=== PATIENT | female | born 1955 | race Caucasian/White ===

== ENCOUNTER 2017-03-05 06:00 | Day surgery (SDC) | payer OTHER ==
[~2017-03-05] VITALS: Ht 180.3 cm; Wt 104.5 kg
[~2017-03-05 06:00] MED LIST: ACETAMINOPHEN325 M1 PO; ATENOLOL25 MG PO; CHLORHEXIDINE473 ML MM; CLONAZEPAM0.5 MG PO; ESCITALOPRAM OX20 MG PO; ESTRADIOL0.5 MG PO; EXCEDRIN MIGRA1 EAC2 PO; FLUTICASONE PRO16 GM NAS; LEVOTHYROXINE25 MCG PO; LORAZEPAM0.5 MG PO; NITROFURANTOIN50 MG PO; OMEPRAZOLE20 MG PO; PROMETHAZINE HC25 M1 PO; SUCRALFATE1 GM PO; TRIAMCINOLONE A15 G1 TOP; VITAMIN C500 M1 PO; ZINC50 MG PO
--- NOTE | 2017-03-05 08:13 | NUR ---
03/05/17 0813 Edwin Middleton CBG = 112 ON ARRIVAL TO PACU
--- NOTE | 2017-03-05 13:57 | NUR ---
PT SAID SHE HAS HAD STOMACH DISCOMFORT FOR 7 YRS, HOPES AND PRAYS THAT TODAY SOME ANSWERS CAN BE DISCOVERED. FRIENDLY, REQUESTED PRAYER. WILL FOLLOW NEEDED
--- NOTE | 2017-03-05 14:24 | OR ---
[facility] [address], [place] [address] Signed DATE OF PROCEDURE: 03/05/17 PREOPERATIVE DIAGNOSES Epigastric abdominal pain. History of peptic ulcer disease. History of gastritis. Personal history of hyperplastic colonic polyps in 2009. POSTOPERATIVE DIAGNOSES Antral gastric ulcers x2. Moderate gastritis. Unremarkable colonoscopy. PROCEDURE EGD with CLOtest and biopsies of the antrum. Colonoscopy without biopsy. ESTIMATED BLOOD LOSS: None. INDICATIONS Anayeli is a 61-year-old female, who I know previously. She underwent upper and lower endoscopy back in May 2010. She is known to have a history of peptic ulcer disease and gastritis. She has also had multiple hyperplastic colonic polyps removed. She also had trouble with the right kid n ey and she had several surgeries and eventually they had to remove that kidney. 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 In the meantime, her epigastric pain has returned. She is quite worried that her ulcer has come back. Her primary care provider had asked her to come see me for upper and lower endoscopy. She reminded me there is no family history of co l on cancer or polyps. In the meantime, she has been trying to take Sucralfate 4 times a day. In the office, I gave Anayeli pamphlets on upper and lower endoscopy. We reviewed the nature of the 2 tests along with the risks including, but not limited to gas bloating, crampy abdominal pain, bleeding, perforation requiring surgery, and missed diagnosis. Also Anayeli has significant medical history and also has daily need for Clonazepam, Escitalopram, Lorazepam, and also has multiple medical allergies. Consequently, we had an anesthesia provider help us previously and we asked that an anesthesia provider help us again today. She had expressed understanding and wished to proceed. PROCEDURE NOTE Anayeli was taken into our endoscopy suite and placed in the supine semi- recumbent position. The posterior oropharynx was anesthetized with Hurricaine spray. A bite block Electronically Signed By: SHAILESH SHERMAN MD 03/05/17 1424 PATIENT NAME: ANAYELI HARTMAN [facility] OPERATIVE REPORT DATE OF : 57 PHYSICIAN: SHAILESH SHERMAN MD REPORT #: [id number] REPORT IS CONFIDENTIAL AND NOT TO BE RELEASED WITHOUT AUTHORIZATION [facility] [address], [place] [address] Signed was utilized for the case. She was given IV sedation per nurse manufacturing engineering technician with Propofol. The adult gastroscope was introduced and advanced under direct visualization of the camera without difficulty. We encountered one fairly large antral polyp and then a smaller polyp off to the side of that. The large antral polyp is covered in a blood clot. We passed into the duodenum out into the small intestine. We passed through the pyloric bulb into the duodenum. The duodenum was unremarkable along with the pyloric channel. Back in the stomach again, she has diffuse punctate hemorrhagic gastritis and these 2 ulcers in the antrum. We took a biopsy from the antrum for pathologic review as well as CLOtest. Upon retroflexion of scope, we did not see any evidence of hiatal hernia. There was no gastric or esophageal varices. The scope was withdrawn up to the area of the GE junction, which was compliant without stricture. There was minimal disruption at the Z-line. There was no Babcock's mucosa, no distal esophagitis. The middle and upper esophagus were unremarkable. After this, the gas was suctioned out and the gastroscope removed. Anayeli tolerated the procedure quite well. Anayeli was then rotated into the left lateral decubitus position. She was maintained on IV sedation with Propofol. A digital rectal exam was performed and this was unremarkable. The adult colonoscope was introduced and advanced under direct visualization of the camera. We did use abdominal compression in order to advance the scope around hepatic flexure and then down into the cecum itself. Her prep was good. The scope was then slowly withdrawn. We found no pathology throughout the entire colon or rectum. Upon retroflexion of the scope, we saw no additional pathology noted above the anal canal. After this, the gas was suctioned out and the colonoscope removed. Anayeli tolerated the procedure quite well. RECOMMENDATIONS I will start Anayeli on Pepcid 20 mg p.o. b.i.d. She is welcome to continue the Sucralfate if she would like. She does use Excedrin migraine for her migraine headaches and it does contain aspirin, but if she needs that p.r.n. for her migraine headaches, that will be fine. Otherwise, no additional aspirin or NSAIDs. We will have her follow up my office in a week or 2 for follow-up and she will need to see her primary care provider as well. MD PERRI Acharya/[place] Electronically Signed By: SHAILESH SHERMAN MD 03/05/17 1424 PATIENT NAME: ANAYELI HARTMAN [facility] OPERATIVE REPORT DATE OF : 57 PHYSICIAN: SHAILESH SHERMAN MD REPORT #: [id number] REPORT IS CONFIDENTIAL AND NOT TO BE RELEASED WITHOUT AUTHORIZATION [facility] [address] [place] [address] [place], [place] [address] Signed /[id number] cc: Dr. Nasim Mcbride Electronically Signed By: SHAILESH SHERMAN MD 03/05/17 1424 PATIENT NAME: ANAYELI HARTMAN [facility] OPERAT[facility] REPORT DATE OF : 57 PHYSICIAN: SHAILESH SHERMAN MD REPORT #: [id number] REPORT IS CONFIDENTIAL AND NOT TO BE RELEASED WITHOUT AUTHORIZATION
== END 2017-03-05 09:04 | disposition home or self-care (01) ==
LOC: OPS 06:00 → DS 06:00
PROVIDERS: Colon & Rectal Surgery
PROC: 0DJD8ZZ Inspection of Lower Intestinal Tract, Via Natural or Artificial Opening Endoscopic (ICD-10-PCS; principal; 2017-03-05 06:45)
PROC: 0DB68ZX Excision of Stomach, Via Natural or Artificial Opening Endoscopic, Diagnostic (ICD-10-PCS; 2017-03-05 06:45)
DX: Z12.11 Encounter for screening for malignant neoplasm of colon (principal); K29.51 Unspecified chronic gastritis with bleeding; I47.1 Supraventricular tachycardia; I10 Essential (primary) hypertension; E78.5 Hyperlipidemia, unspecified; E03.9 Hypothyroidism, unspecified; F32.9 Major depressive disorder, single episode, unspecified; F41.9 Anxiety disorder, unspecified; F43.10 Post-traumatic stress disorder, unspecified; G43.909 Migraine, unspecified, not intractable, without status migrainosus; Z86.010 Personal history of colon polyps; Z87.11 Personal history of peptic ulcer disease; Z79.899 Other long term (current) drug therapy; Z98.890 Other specified postprocedural states; Z88.2 Allergy status to sulfonamides; Z88.8 Allergy status to other drugs, medicaments and biological substances; Z91.040 Latex allergy status; Z88.5 Allergy status to narcotic agent; Z88.0 Allergy status to penicillin; Z88.1 Allergy status to other antibiotic agents
CPT/HCPCS: 00740; 86677; J2060; J2405; J2704; J7120

== ENCOUNTER 2020-12-03 14:17 | Emergency (ER) | payer OTHER ==
[~2020-12-03] VITALS: Ht 182.9 cm; Wt 95.2 kg
--- OUTSIDE RECORDS SUMMARY | 2020-12-03 14:20 | XMS ---
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 Valentin has no Care Guidelines for this patient. Hellen VISIT COUNT (12 MO.) 1 FAYE Vance TOTAL 1 NOTE: Visits indicate total known visits. ED/C VISIT TRACKING (12 MO.) 12/03/2020 14:18 FAYE Huffman [place] TYPE: Emergency COMPLAINT: - COLD SYMPTOMS INPATIENT VISIT TRACKING (12 MO.) No inpatient visits to display in this time frame [email or web address]
[2020-12-03] MEDS ORDERED: NORVASC10 MG PO (14:44)
[2020-12-03] MEDS ORDERED: REPATHA SU140 MG/1 M (14:45)
[2020-12-03] MEDS ORDERED: DIFLUCAN50 MG PO (14:46)
[2020-12-03] MEDS ORDERED: DIFLUCAN100 MG (14:47)
[2020-12-03] MEDS ORDERED: CYTOMEL5 MCG PO (14:48)
[2020-12-03] MEDS ORDERED: MUPIROCIN22 GM TOP (14:49)
[2020-12-03] MEDS ORDERED: PHENAZOPYRIDIN200 MG PO (14:50)
[2020-12-03] MEDS ORDERED: TESSALON PERLE100 MG PO (16:45)
--- NOTE | 2020-12-03 21:10 | EKG ---
[facility] [address] [facility] [place], [place] [address] Signed Normal sinus rhythm Normal ECG When compared with ECG of 26-FEB-2017 09:47, No significant change was found Confirmed by MARGARET MONTGOMERY DO ([id number]) on 12/03/2020 9:10:01 PM Electronically Signed By: MARGARET MONTGOMERY DO 12/03/202109 PATIENT NAME: DANNY HARTMAN [facility] Electrocardiogram DATE OF : 57 PHYSICIAN: MARGARET MONTGOMERY DO REPORT #: [id number] REPORT IS CONFIDENTIAL AND NOT TO BE RELEASED WITHOUT AUTHORIZATION
== END 2020-12-03 17:43 | disposition home or self-care (01) ==
LOC: ED 14:17
DX: U07.1 COVID-19 (principal); J12.82 Pneumonia due to coronavirus disease 2019; E11.22 Type 2 diabetes mellitus with diabetic chronic kidney disease; N18.30 Chronic kidney disease, stage 3 unspecified; E03.9 Hypothyroidism, unspecified; Z88.8 Allergy status to other drugs, medicaments and biological substances; Z88.1 Allergy status to other antibiotic agents; Z88.0 Allergy status to penicillin; Z91.040 Latex allergy status; Z91.048 Other nonmedicinal substance allergy status; Z88.5 Allergy status to narcotic agent; Z88.7 Allergy status to serum and vaccine; Z79.899 Other long term (current) drug therapy
CPT/HCPCS: 71045; 80053; 83735; 84484; 85025; 93005; 93010; 99285-25; C9803; U0003

== ENCOUNTER 2021-07-14 08:31 | Emergency (ER) | payer MEDICARE, OTHER ==
[~2021-07-14] VITALS: Ht 182.9 cm; Wt 91.5 kg
[~2021-07-14 08:31] MED LIST changes: +CYTOMEL5 MCG PO; +DIFLUCAN100 MG; +DIFLUCAN50 MG PO; +MUPIROCIN22 GM TOP; +NORVASC10 MG PO; +PHENAZOPYRIDIN200 MG PO; +REPATHA SU140 MG/1 M; +TESSALON PERLE100 MG PO
--- OUTSIDE RECORDS SUMMARY | 2021-07-14 08:34 | XMS ---
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 E.Jairo. VISIT COUNT (12 MO.) [address] [facility] [address] [facility] TOTAL 2 NOTE: Visits indicate total known visits. ED/UCC VISIT TRACKING (12 MO.) 07/14/2021 08:31 F[facility]E Huffman OR TYPE: Emergency COMPLAINT: - SOB,COUGH,NAUSEA 12/03/2020 14:18 FAYE Huffman OR TYPE: Emergency COMPLAINT: - COLD SYMPTOMS DIAGNOSES: - Cough - Allergy status to other antibiotic agents - Allergy status to penicillin - Other group home (current) drug therapy - Other nonmedicinal substance allergy status - Allergy status to serum and vaccine - Type 2 diabetes mellitus with diabetic chronic kidney disease - Allergy status to narcotic agent - Allergy status to other drugs, medicaments and biological substances - Latex allergy status - Hypothyroidism, unspecified - COVID-19 - Chronic kidney disease, stage 3 unspecified INPATIENT VISIT TRACKING (12 MO.) No inpatient visits to display in this time frame [email or web address]
[2021-07-14] MEDS ORDERED: LOSARTAN POTASS50 MG PO (08:55)
[2021-07-14] MEDS ORDERED: VITAMIN D350 MCG PO (08:59)
[2021-07-14] MEDS ORDERED: CEFDINIR300 MG PO (11:06)
[2021-07-14] MEDS ORDERED: BENZONATATE100 MG PO (11:08)
== END 2021-07-14 11:52 | disposition home or self-care (01) ==
LOC: ED 08:31
DX: J20.5 Acute bronchitis due to respiratory syncytial virus (principal); H66.91 Otitis media, unspecified, right ear; E11.22 Type 2 diabetes mellitus with diabetic chronic kidney disease; N18.30 Chronic kidney disease, stage 3 unspecified; E03.9 Hypothyroidism, unspecified; Z88.8 Allergy status to other drugs, medicaments and biological substances; Z88.0 Allergy status to penicillin; Z91.048 Other nonmedicinal substance allergy status; Z88.6 Allergy status to analgesic agent; Z88.5 Allergy status to narcotic agent; Z88.7 Allergy status to serum and vaccine; Z79.899 Other long term (current) drug therapy; Z20.822 Contact with and (suspected) exposure to COVID-19
CPT/HCPCS: 70450; 71045; 80048; 85025; 99285-25; C9803; J0696; U0003

== ENCOUNTER 2024-07-15 15:39 | Emergency (ER) | payer MEDICARE, OTHER ==
[~2024-07-15] VITALS: Ht 182.9 cm; Wt 103.0 kg
[~2024-07-15 15:39] MED LIST changes: +BENZONATATE100 MG PO; +CEFDINIR300 MG PO; +LOSARTAN POTASS50 MG PO; +VITAMIN D350 MCG PO
[2024-07-15] MEDS ORDERED: ASPIRIN 81 MG CHEW PO ONE (16:00)
[2024-07-15 16:04] LABS: BASOPHILS 0.7 % (0-2); EOSINOPHILS 2.6 % (0-6); HEMOGLOBIN 15.2 g/dL (12.0-18.0); LYMPHOCYTES 29.8 % (24-44); MCH 31.7 (27-36); MCHC 34.5 g/dl (30-36); MCV 91.8 fl (81-99); MONOCYTES 7.2 % (0-12); NEUTROPHILS 59.7 % (39-80); PLATELET COUNT 147 K/uL (140-440); RBC 4.79 M/ul (4.3-5.7); RDW 13.7 (10.5-15.0)
[2024-07-15 16:30] LABS: ALBUMIN/GLOBULIN RATIO 0.98 (1.1-2.4); ANION GAP 12.3 (7-21); BILIRUBIN, TOTAL 0.6 ng/dL (0.2-1.0); BUN/CREATININE RATIO 9.01 (6.0-28.6); CALCIUM 9.1 mg/dL (8.5-10.1); CREATININE, SERUM 1.22 mg/dL (0.55-1.02); MAGNESIUM 2.1 mg/dL (1.8-2.4); POTASSIUM 4.3 mmol/L (3.5-5.1); PROTEIN, TOTAL 8.1 g/dL (6.4-8.2)
[2024-07-15] MEDS ORDERED: SPIRONOLACTONE25 MG PO (16:59)
[2024-07-15] MEDS ORDERED: EZETIMIBE10 MG PO (17:00)
[2024-07-15] MEDS ORDERED: LIDOCAINE & ANTACID 35 ML BTL PO ONE (18:30)
[2024-07-15] MEDS ORDERED: PROMETHAZINE HC25 M1 PO (19:03)
[2024-07-15 19:15] VITALS: BP 194/92
[2024-07-15] MEDS ORDERED: PANTOPRAZOLE SODIUM 40 MG TABEC PO ONE (19:15)
--- NOTE | 2024-07-15 22:24 | EKG ---
[facility] [address] [facility] [place] [address] Signed Sinus rhythm with 1st degree AV block Nonspecific T wave abnormality Abnormal ECG When compared with ECG of 03-DEC-2020 14:39, Nonspecific T wave abnormality now evident in Lateral leads Confirmed by Abundio Ring MD () on 07/15/2024 10:24:28 PM Electronically Signed By: ABUNDIO RING MD 07/15/242223 PATIENT NAME: DANNY HARTMAN Electrocardiogram DATE OF : 57 PHYSICIAN: ABUNDIO RING MD REPORT #: [id number] REPORT IS CONFIDENTIAL AND NOT TO BE RELEASED WITHOUT AUTHORIZATION
== END 2024-07-15 19:15 | disposition home or self-care (01) ==
LOC: ED 15:39
PROVIDERS: Emergency Medicine
DX: R07.89 Other chest pain (principal); E11.22 Type 2 diabetes mellitus with diabetic chronic kidney disease; N18.30 Chronic kidney disease, stage 3 unspecified; E03.9 Hypothyroidism, unspecified; Z87.11 Personal history of peptic ulcer disease; Z88.0 Allergy status to penicillin; Z88.8 Allergy status to other drugs, medicaments and biological substances; Z88.6 Allergy status to analgesic agent; Z88.5 Allergy status to narcotic agent; Z88.1 Allergy status to other antibiotic agents; Z88.7 Allergy status to serum and vaccine; Z91.048 Other nonmedicinal substance allergy status; Z79.890 Hormone replacement therapy; Z79.899 Other long term (current) drug therapy
CPT/HCPCS: 36415; 71045; 80053; 83735; 84484; 85025; 93005; 93010; 99285-25; A9270